=== PATIENT | female | born 1945 | race Caucasian/White ===

== ENCOUNTER → 2019-12-25 07:19 | Outpatient (CLI) | payer MEDICARE, SELFPAY ==
--- NOTE | ~2019-12-25 | MM_ITS ---
EXAMINATION: MM screening [facility] BI w angelita HISTORY: Screening mammogram TECHNIQUE: Craniocaudal and mediolateral oblique 3-D tomosynthesis images were obtained and synthetic 2-D images were generated. CAD analysis was submitted and interpreted. COMPARISON: 11/07/2018, 10/24/2017, 10/24/2016 BREAST PARENCHYMAL COMPOSITION: There are scattered areas of fibroglandular density. FINDINGS: RIGHT BREAST: There is no evidence of suspicious mass, calcification, or architectural distortion to suggest malignancy. There has been no significant interval change. LEFT BREAST: There is possible architectural distortion of the breast best appreciated 10 cm from the nipple in the middle third of the upper breast on mediolateral oblique tomosynthesis image 26/64. IMPRESSION: 1. Possible left breast architectural distortion. 2. Additional mammographic views and possible breast ultrasound are recommended. BI-RADS Category 0: Incomplete: Needs additional imaging evaluation. Reviewed, dictated and finalized at location A. ER CONTROL OPERATOR IMPRESSION: 1. Possible left breast architectural distortion. 2. Additional mammographic views and possible breast ultrasound are recommended . BI-RADS Category 0: Incomplete: Needs additional imaging evaluation.
== END ==
PROVIDERS: Visit Provider Family Medicine
DX: Z12.31 Encounter for screening mammogram for malignant neoplasm of breast (principal); R92.8 Other abnormal and inconclusive findings on diagnostic imaging of breast
CPT/HCPCS: 77063; 77067

== ENCOUNTER → 2020-01-09 07:53 | Outpatient (CLI) | payer MEDICARE, SELFPAY ==
--- NOTE | ~2020-01-09 | MMUS_ITS ---
EXAMINATION: MM diagnostic mammo unilat LT, US breast LT limited HISTORY: Possible left breast architectural distortion reported on 12/25/2019 bilateral digital screen ing mammogram TECHNIQUE: Additional 3-D tomosynthesis images of the left breast were performed and synthetic 2-D im ages were generated. CAD analysis was submitted and interpreted. High resolution upper outer quadrant left breast ultrasound was performed. COMPARISON: 12/25/2019, 11/07/2018, 10/24/2017 bilateral digital screening mammogram examinations FINDINGS: MAMMOGRAPHIC FINDINGS: Stable mild fibroglandular asymmetry. No suspicious mass or architectural distortion is evident on these supplemental views. No significant new or developing density. ULTRASOUND: No suspicious mass, vascularity or shadowing is detected. IMPRESSION: 1. No mammographic evidence of malignancy 2. Routine annual mammographic screening is recommended. BI-RADS Category 2: Benign finding(s). Reviewed, dictated and finalized at location A. IMS ADVOCATE CLERK/SPECIALIST IMPRESSION: 1. No mammographic evidence of malignancy 2. Routine annual mammographic screening is recommended. BI-RADS Category 2: Benign finding(s).
== END ==
PROVIDERS: Visit Provider Family Medicine
DX: R92.8 Other abnormal and inconclusive findings on diagnostic imaging of breast (principal)
CPT/HCPCS: 76642; 77065

== ENCOUNTER 2020-02-04 17:20 | Emergency (ER) | payer MEDICARE, SELFPAY ==
[2020-02-04 17:24] VITALS: BP 174/86; PULSE 84; RESP 16; TEMP 36.5; O2SAT 99
--- NOTE | 2020-02-04 17:31 | ED.WOUNDLAC ---
HPI - Wound/Laceration General Chief Complaint: Skin/Abscess/Foreign Body Stated Complaint: L HAND LAC Source: patient and RN notes reviewed Mode of arrival: ambulatory Limitations: no limitations History of Present Illness HPI narrative: This is a 74 years old female presented office for evaluation of left hand laceration prior to arrival. Stated she was finished painting and step back to look at her painting and accidentally tripped over her curb side and landed on her left hand and right knee. No treatment prior to arrival. She is not on any anticoagulation medication.TD is unknown. She is very anxious, stated I am allergic to needle . Related Data Home Medications Medication Instructions Recorded Confirmed losartan 50 mg PO DAILY 02/04/20 02/04/20 Allergies Allergy/AdvReac Type Severity Reaction Status Date / Time No Known Allergies Allergy Unknown Unverified 02/04/20 17:23 Review of Systems Review of Systems: Narrative: CONSTITUTIONAL: Reports feeling anxious about stitches CARDIOVASCULAR: Denies chest pain RESPIRATORY: Denies difficulty breathing GASTROINTESTINAL: Denies nausea SKIN: Reports left palm laceration, right knee abrasion MUSCULOSKELETAL: Reports right knee sore; but not concerning NEUROLOGIC: Denies head injury/feeling dizziness prior to accident PMFSH Past Medical History Medical History COPD (chronic obstructive pulmonary disease) Cough due to JOSTIN inhibitor Essential (primary) hypertension Major depressive disorder, recurrent, moderate Nicotine dependence, unspecified, uncomplicated Other age-related incipient cataract, left eye Other and unspecified hyperlipidemia Postmenopausal Spondylosis of lumbar region without myelopathy or radiculopathy Tremor Vitamin D deficiency Family History Family History Mother Hypertension Family history of elevated blood lipids Sibling Hypertension Family history of elevated blood lipids Cerebrovascular accident Family history of diabetes mellitus in first degree relative Father Hypertension Cerebrovascular accident, Onset Age: 80 Patient's father is Other Diabetes mellitus Family history of arthritis Social History Social History Smoking status: Current every day smoker Alcohol intake: current Comments At time of signature, I agree with nursing past medical, surgical, social and family history. There is no relevant family history pertinent to the presenting complaint. Exam Narrative: Exam Narrative: GENERAL: This is a well-nourished, well-developed patient, in no apparent distress. NEURO: awake, alert, and oriented to person, place and time. There were no obvious focal neurologic abnormalities. Steady gait EXTREMITIES: Right knee cap noted skin abrasion with slight tenderness to palpation. Left fingers with FROM, brisk with good cap refills;radial pulse intact. Left mid palm noted U shape laceration, gapping with active bleeding; but controlled with pressure Kiel Coma Scale Eye Opening: Spontaneous 4 Kiel Coma Scale Motor: Obeys Commands 6 Rachelle Coma Scale Verbal: Oriented 5 Course Vital Signs Vital signs: Vital Signs Temperature 97.7 F 02/04/20 17:24 Pulse Rate 84 02/04/20 17:24 Respiratory Rate 16 02/04/20 17:24 Blood Pressure 174/86 H 02/04/20 17:24 Pulse Oximetry 99 02/04/20 17:24 Temperature 97.7 F 02/04/20 17:24 Pulse Rate 84 02/04/20 17:24 Respiratory Rate 16 02/04/20 17:24 Blood Pressure 174/86 H 02/04/20 17:24 Pulse Oximetry 99 02/04/20 17:24 Procedures Laceration Laceration 1: Date: 02/04/20 Time: 17:56 Site: hand Side (If applicable): left Size (cm): 5 Description: flap and irregular Depth: simple, single layer Local A
[2020-02-04] MEDS: TETANUS,DIPHTHERIA,AC PERTUSSIS ADULT (0.5 ML) BOOSTRIX IM (18:10)
== END 2020-02-04 18:33 | disposition home or self-care (01) ==
PROVIDERS: Emergency Provider Nurse Practitioner; PCP Family Medicine
DX: S61.412A Laceration without foreign body of left hand, initial encounter (principal); W18.09XA Striking against other object with subsequent fall, initial encounter; S80.211A Abrasion, right knee, initial encounter; Z23 Encounter for immunization; F17.200 Nicotine dependence, unspecified, uncomplicated; J44.9 Chronic obstructive pulmonary disease, unspecified; I10 Essential (primary) hypertension; M47.816 Spondylosis without myelopathy or radiculopathy, lumbar region; E55.9 Vitamin D deficiency, unspecified
CPT/HCPCS: 12002; 90471; 90715; 99212; G0463

== ENCOUNTER 2020-02-13 13:34 | Emergency (ER) | payer MEDICARE, SELFPAY ==
[2020-02-13 13:42] VITALS: BP 167/92; PULSE 67; RESP 19; TEMP 36.4; O2SAT 100
--- NOTE | 2020-02-13 13:43 | ED.WOUNDLAC ---
HPI - Wound/Laceration General Chief Complaint: Wound/Laceration Stated Complaint: remove stitches Time Seen by Provider: 02/13/20 13:55 Source: patient Mode of arrival: ambulatory Limitations: no limitations History of Present Illness HPI narrative: Jerrica Vo is a 74 yo female with a hx of HTN who has sutures placed in palm of L hand on 02/03 is here for suture removal Related Data Home Medications Medication Instructions Recorded Confirmed losartan 50 mg PO DAILY 02/04/20 02/13/20 Allergies Allergy/AdvReac Type Severity Reaction Status Date / Time No Known Allergies Allergy Unknown Unverified 02/04/20 17:23 Review of Systems Review of Systems: Narrative: General/Constitutional: Denies: weight loss,fever Eyes: Denies: Redness,discharge Ears/Nose/Throat: Denies: Epistaxis,ear discharge Respiratory: Denies: Hemoptysis Gastrointestinal: Denies: Vomiting, Bleeding-rectal Skin:stures in L hand Neurologic: Denies: Focal Weakness,Sz Hematologic: Denies: Petechiae/Purpura Psychiatric: Denies: Suicidal ideation All Other Systems: Reviewed and Negative PMFSH Past Medical History Medical History COPD (chronic obstructive pulmonary disease) Cough due to JOSTIN inhibitor Essential (primary) hypertension Major depressive disorder, recurrent, moderate Nicotine dependence, unspecified, uncomplicated Other age-related incipient cataract, left eye Other and unspecified hyperlipidemia Postmenopausal Spondylosis of lumbar region without myelopathy or radiculopathy Tremor Vitamin D deficiency Family History Family History Mother Hypertension Family history of elevated blood lipids Sibling Hypertension Family history of elevated blood lipids Cerebrovascular accident Family history of diabetes mellitus in first degree relative Father Hypertension Cerebrovascular accident, Onset Age: 80 Patient's father is Other Diabetes mellitus Family history of arthritis Social History Social History Smoking status: Current every day smoker Alcohol intake: current Comments At time of signature, I agree with nursing past medical, surgical, social and family history. There is no relevant family history pertinent to the presenting complaint. Exam Narrative: Exam Narrative: GENERAL: This is a well-nourished, well-developed patient, in mild distress. afebrile, anvious HEAD: normocephalic, atraumatic. EYES: PERRL. Sclera clear/white. Vision is grossly intact. EARS: External ears normal, auditory canals clear and without drainage, TMs normal without perforation. Hearing grossly intact. NOSE: External nose normal with nasal discharge, nares without redness, THROAT: Mucous membranes moist, posterior pharynx mild erythema NECK: Neck supple, non-tender CARDIOVASCULAR: Regular rate and rhythm without murmurs, gallops, or rubs. RESPIRATORY: Clear to auscultation. Breath sounds equal bilaterally. No wheezes, rales, or rhonchi. GASTROINTESTINAL: Abdomen soft, non-tender, SKIN: warm, intact with no suspicious lesions or rash, good texture and turgor.well approximated. healing sture line in heel L hand, nild erythema, NEURO: awake, alert, and oriented to person, place and time. There were no obvious focal neurologic abnormalities. Steady gait EXTREMITIES: Normal range of motion. BACK: Nontender without deformity Course Vital Signs Vital signs: Vital Signs Temperature 97.5 F L 02/13/20 13:42 Pulse Rate 67 02/13/20 13:42 Respiratory Rate 19 02/13/20 13:42 Blood Pressure 167/92 H 02/13/20 13:42 Pulse Oximetry 100 02/13/20 13:42 Temperature 97.5 F L 02/13/20 13:42 Pulse Rate 67 02/13/20 13:42 Respiratory Rate 19 02/13/20 13:42 Blood Pressure 167/92 H 02/13/20 13:42 Pulse Oximetry 100 02/13/20 13:42 Procedures
== END 2020-02-13 14:11 | disposition home or self-care (01) ==
PROVIDERS: Emergency Provider Nurse Practitioner; PCP Family Medicine
DX: S61.412D Laceration without foreign body of left hand, subsequent encounter (principal); X58.XXXD Exposure to other specified factors, subsequent encounter; F17.200 Nicotine dependence, unspecified, uncomplicated; J44.9 Chronic obstructive pulmonary disease, unspecified; I10 Essential (primary) hypertension; M47.816 Spondylosis without myelopathy or radiculopathy, lumbar region; E55.9 Vitamin D deficiency, unspecified; E78.5 Hyperlipidemia, unspecified
CPT/HCPCS: 99211; G0463

== ENCOUNTER → 2020-12-27 10:15 | Outpatient (CLI) | payer MEDICARE, SELFPAY ==
--- NOTE | ~2020-12-27 | MM_ITS ---
EXAMINATION: MM screening [facility] BI w angelita HISTORY: Screening mammogram TECHNIQUE: Craniocaudal and mediolateral oblique 3-D tomosynthesis images were obtained and synthetic 2-D images were generated. CAD analysis was submitted and interpreted. COMPARISON: 01/09/2020, 12/25/2019, 11/07/2018, 10/24/2017 BREAST PARENCHYMAL COMPOSITION: There are scattered areas of fibroglandular density. FINDINGS: There is no evidence of suspicious mass, calcification, or architectural distortion to sugg est malignancy in either breast. There has been no suspicious interval change. IMPRESSION: 1. No mammographic evidence of malignancy. 2. Recommend routine screening mammography in one year. BI-RADS Category 1: Negative Reviewed, dictated and finalized at location A. N RESOURCES DIRECTOR
== END ==
PROVIDERS: PCP Family Medicine; Visit Provider Family Medicine
DX: Z12.31 Encounter for screening mammogram for malignant neoplasm of breast (principal)
CPT/HCPCS: 77063; 77067

== ENCOUNTER → 2021-05-02 12:18 | Outpatient (CLI) | payer MEDICARE, SELFPAY ==
--- NOTE | ~2021-05-02 | DEXA_ITS ---
Bone Density Report Name: Jerrica Vo Age: 76 Sex: Female Ethnicity: White Date of : 1945 Indication: postmenopausal; screening for osteoporosis; parental hip fracture; Referring Provider: TAWANNA QUINTERO Study: Bone densitometry was performed. Exam Date: May 02, 2021 Accession number: [id number] Bone Density: Region BMD T-score Z-score Classification AP Spine (L1, L2, L4) 1.154 1.1 3.5 Normal Femoral Neck (Left) 0.718 -1.2 1.0 Osteopenia Total Hip (Left) 0.891 -0.4 1.4 Normal Femoral Neck (Right) 0.744 -0.9 1.2 Normal Total Hip (Right) 0.856 -0.7 1.1 Normal Total Hip Mean 0.874 -0.6 1.3 Normal World Health Organization criteria for BMD impression classify patients as: Normal (T-score at or above -1.0), Osteopenia (T-score between -1.0 and -2.5), or Osteoporosis (T-score at or below -2.5). 10-year Fracture Risk(1): Major Osteoporotic Fracture 21% Hip Fracture 13% Reported Risk Factors: [place] (), Neck BMD=0.718, BMI=25.9, parental fracture, smoking (1) FRAX(R) Version 3.08. Fracture probability calculated for an untreated patient. Fracture probability may be lower if the patient has received treatment. Previous Exams: Region Exam Age BMD T-score BMD Change BMD Change Date g/cm2 vs Baseline vs Previous AP Spine(L1, L2, L4) 05/02/2021 76 1.154 1.1 0.026* 0.028* 10/24/2017 72 1.125 0.8 -0.002 0.005 10/04/2015 70 1.120 0.8 -0.008 0.016 10/26/2010 65 1.104 0.6 -0.023* -0.023* 07/03/2007 62 1.127 0.8 Total Hip(Left) 05/02/2021 76 0.891 -0.4 0.005 -0.025 10/24/2017 72 0.915 -0.2 0.030* 0.022 10/04/2015 70 0.894 -0.4 0.008 0.021 10/26/2010 65 0.872 -0.6 -0.013 -0.013 07/03/2007 62 0.886 -0.5 Total Hip(Right) 05/02/2021 76 0.856 -0.7 -0.046* 0.013 10/24/2017 72 0.843 -0.8 -0.059* -0.004 10/04/2015 70 0.847 -0.8 -0.055* -0.021 10/26/2010 65 0.868 -0.6 -0.034* -0.034* 07/03/2007 62 0.902 -0.3 *Denotes significance at 95% confidence level, LSC for AP Spine = 0.022 g/cm2, LSC for Total Hip = 0.027 g/cm2 Clinical Information Provided by Patient: Parent has had a hip fracture Smokes Has used the following medications: Vitamin D, Calcium Patient maximum height was 67.0 Menopause Age: 5
== END ==
PROVIDERS: PCP Family Medicine; Visit Provider Family Medicine
DX: Z78.0 Asymptomatic menopausal state (principal); M85.852 Other specified disorders of bone density and structure, left thigh
CPT/HCPCS: 77080

== ENCOUNTER 2021-10-17 10:14 | Outpatient (CLI) | payer MEDICARE, SELFPAY ==
--- NOTE | ~2021-10-17 | CT_ITS ---
EXAMINATION: CT lung screening DATE: 10/17/2021 11:06 INDICATION: History of tobacco dependence. TECHNIQUE: Computed tomography (CT) of the chest was performed without intravenous contrast. The dose -length product was 88.94 mGy-cm. Automated exposure control and iterative reconstruction technique w ere employed. COMPARISON: Chest x-ray dated 04/11/2016 FINDINGS: Heart size is normal. No significant pleural or pericardial effusion. There is mild atheros clerosis of the aorta and coronary arteries. Calcified granuloma left upper lobe. The upper abdomen i s unremarkable. Mild thoracic spondylosis. No focal lytic or blastic lesion. There is a 2-3 mm right apical nodule. There is a 3 mm left lower lobe nodule. There is a 2 mm lingular nodule. No endobronch ial lesions. No focal airspace disease. No pneumothorax. IMPRESSION: 1. Lung-RADS category 2: Benign appearance or behavior. Continue annual screening with noncontrast lo w-dose chest CT in 12 months. Reviewed, dictated and finalized at location A. NSIONAL INTEGRATION ENGINEER IMPRESSION: 1. Lung-RADS category 2: Benign appearance or behavior. Continue annual screeni ng with noncontrast low-dose chest CT in 12 months.
== END 2021-10-17 10:15 | disposition home or self-care (01) ==
PROVIDERS: PCP Family Medicine; Visit Provider Family Medicine
DX: Z12.2 Encounter for screening for malignant neoplasm of respiratory organs (principal); Z87.891 Personal history of nicotine dependence
CPT/HCPCS: 71271

== ENCOUNTER → 2022-01-26 12:16 | Outpatient (CLI) | payer MEDICARE, SELFPAY ==
--- NOTE | ~2022-01-26 | MM_ITS ---
EXAMINATION: MM screening [facility] BI w angelita HISTORY: Screening mammogram TECHNIQUE: Craniocaudal and mediolateral oblique 3-D tomosynthesis images were obtained and synthetic 2-D images were generated. CAD analysis was submitted and interpreted. COMPARISON: December 27, 2020 bilateral screening mammogram January 09, 2020 diagnostic left mammogram and limited left breast ultrasound December 25, 2019, November 07, 2018, October 24, 2017 bilateral screening mammogram examinations BREAST PARENCHYMAL COMPOSITION: There are scattered areas of fibroglandular density. FINDINGS: There is no evidence of suspicious mass, calcification, or architectural distortion to sugg est malignancy in either breast. There has been no suspicious interval change. IMPRESSION: 1. No mammographic evidence of malignancy. 2. Recommend routine screening mammography in one year. BI-RADS Category 1: Negative Reviewed, dictated and finalized at location A.
== END ==
PROVIDERS: PCP Family Medicine; Visit Provider Family Medicine
DX: Z12.31 Encounter for screening mammogram for malignant neoplasm of breast (principal)
CPT/HCPCS: 77063; 77067

== ENCOUNTER 2022-08-10 08:11 | Emergency (ER) | payer MEDICARE, SELFPAY ==
--- NOTE | 2022-08-10 08:22 | ED.SKABFB ---
HPI - Skin/Abscess/Foreign Bdy General Chief complaint: Skin/Abscess/Foreign Body Stated complaint: bump on upper lt arm Time Seen by Provider: 08/10/22 08:25 Source: patient Mode of arrival: ambulatory Limitations: no limitations History of Present Illness HPI narrative: 77 y/o female presented for c/o 'bump' to left upper arm for about 2 days. Center is with with surrounding redness. Denies pain, drainage, itching to the site. Denies change in size or any other locations. No change to lotion, soap, detergent etc. Endorses covid vaccination 07/20, flu vac 07/12, stating one of these vaccines was on the left arm. She has not applied anything to the site. Related Data Home Medications Medication Instructions Recorded Confirmed calcium carbonate 600 mg calcium 600 mg PO DAILY 12/02/21 08/10/22 (1,500 mg) tablet (Calcium) Allergies Allergy/AdvReac Type Severity Reaction Status Date / Time No Known Allergies Allergy Unknown Verified 08/10/22 08:18 Review of Systems Review of Systems: CONSTITUTIONAL: Denies body aches, fever, chills, or sweats. EYES: Denies visual changes, redness, or discharge. ENT: Denies rhinorrhea, congestion CARDIOVASCULAR: Denies chest pain, palpitations, or edema. RESPIRATORY: Denies cough or dyspnea. GASTROINTESTINAL: Denies abdominal pain, nausea, vomiting, or diarrhea. SKIN: left arm 'bump' MUSCULOSKELETAL: Denies back pain, joint pain, or myalgia. NEUROLOGIC: Denies headache, numbness, tingling, or weakness. [facility] Past Medical History Medical History COPD (chronic obstructive pulmonary disease) Cough due to JOSTIN inhibitor Essential (primary) hypertension Macular degeneration Major depressive disorder, recurrent, moderate Nicotine dependence, unspecified, uncomplicated Other age-related incipient cataract, left eye Other and unspecified hyperlipidemia Postmenopausal Spondylosis of lumbar region without myelopathy or radiculopathy Tremor Vitamin D deficiency Surgical History Surgical History H/O oophorectomy History of total knee arthroplasty Hx of cataract surgery Family History Family History Mother Hypertension Family history of elevated blood lipids Sibling Hypertension Family history of elevated blood lipids Cerebrovascular accident Family history of diabetes mellitus in first degree relative Father Hypertension Cerebrovascular accident, Onset Age: 80 Patient's father is Other Diabetes mellitus Family history of arthritis Social History Social History Social History: Smoking packs per day: 0.5 Smoking cigarettes per day: 10.0 Years smoked: 60 Smoking pack-years: 30.00 Smoking status: Current every day smoker Tobacco type: cigarettes Second hand tobacco smoke exposure: Yes Alcohol intake: never Substance use: never Substance use type: does not use Gender identity (if verbalized by the patient): Female Sexual Orientation (if Verbalized by the Patient): Straight or Heterosexual Comments At time of signature, I have reviewed and agree with nursing past medical, surgical, social and family history unless otherwise noted. Please see nursing chart for further information. There is no relevant family history pertinent to the presenting complaint Exam Narrative: GENERAL: Well-appearing EYES: conjunctivae clear, and EOMI. ENT: Mucous membranes moist. Oropharynx without edema, erythema or lesions. CHEST: Clear to auscultation. HEART: Regular rate and rhythm. SKIN: Warm, dry. Left distal aspect of deltoid with approx 0.5cm diameter erythema with approx 3mm white fluctuant comedone at center. Firm under skin, nontender, no induration. NEURO: Alert and oriented x3. Cours
[2022-08-10 08:23] VITALS: BP 156/86; PULSE 82; RESP 16; TEMP 36.9; O2SAT 99
== END 2022-08-10 08:40 | disposition home or self-care (01) ==
PROVIDERS: Emergency Provider Nurse Practitioner Family; PCP Family Medicine
DX: L70.0 Acne vulgaris (principal); F17.210 Nicotine dependence, cigarettes, uncomplicated; J44.9 Chronic obstructive pulmonary disease, unspecified; I10 Essential (primary) hypertension; H35.30 Unspecified macular degeneration; M47.816 Spondylosis without myelopathy or radiculopathy, lumbar region; E78.5 Hyperlipidemia, unspecified; Z96.659 Presence of unspecified artificial knee joint
CPT/HCPCS: 10160; 99213; G0463

== ENCOUNTER 2022-12-20 09:49 | Outpatient (CLI) | payer MEDICARE, SELFPAY ==
--- NOTE | ~2022-12-20 | CT_ITS ---
EXAMINATION: CT lung screening DATE: 12/20/2022 10:13 INDICATION: Smoker. Personal history of tobacco dependence. TECHNIQUE: Computed tomography (CT) of the chest was performed without intravenous contrast. The dose -length product was 90.31 mGy-cm. Automated exposure control and iterative reconstruction technique w ere employed. COMPARISON: CT dated 10/17/2021 FINDINGS: There is a calcified granuloma left upper lobe. No thoracic lymphadenopathy. There is ather osclerosis of the aorta and coronary arteries. No significant pleural or pericardial effusion. There is mild emphysema. Stable 2-3 mm right apical nodule. No endobronchial lesions. No emphysema. Stable 2 mm left lower lobe nodule. Stable 2 mm lingular nodule. No new pulmonary nodules or masses. Mild th oracic spondylosis. IMPRESSION: 1. Lung-RADS category 2: Benign appearance or behavior. Continue annual screening with noncontrast lo w-dose chest CT in 12 months. Reviewed, dictated and finalized at location A. STIAN COUNSELOR IMPRESSION: 1. Lung-RADS category 2: Benign appearance or behavior. Continue annual screeni ng with noncontrast low-dose chest CT in 12 months.
== END 2022-12-20 09:50 | disposition home or self-care (01) ==
PROVIDERS: PCP Family Medicine; Visit Provider Family Medicine
DX: Z12.2 Encounter for screening for malignant neoplasm of respiratory organs (principal); F17.210 Nicotine dependence, cigarettes, uncomplicated
CPT/HCPCS: 71271

== ENCOUNTER → 2023-03-28 10:42 | Outpatient (CLI) | payer MEDICARE, SELFPAY ==
--- NOTE | ~2023-03-28 | MM_ITS ---
EXAMINATION: MM screening [facility] BI w angelita HISTORY: Screening mammogram TECHNIQUE: Craniocaudal and mediolateral oblique 3-D tomosynthesis images were obtained and synthetic 2-D images were generated. CAD analysis was submitted and interpreted. COMPARISON: 01/26/2022, 12/27/2020, 01/09/2020, 12/25/2019 BREAST PARENCHYMAL COMPOSITION: There are scattered areas of fibroglandular density. FINDINGS: No suspicious mass, calcification, or architectural distortion are identified in either chepe ast to suggest malignancy. There has been no suspicious interval change. IMPRESSION: 1. No mammographic evidence of malignancy. 2. Recommend routine screening mammography in one year. BI-RADS Category 1: Negative Reviewed, dictated and finalized at location A.
--- NOTE | ~2023-03-28 | DEXA_ITS ---
Bone Density Report Name: JOHN RASMUSSEN Age: 78 Sex: Female Ethnicity: White Date of : 1945 Indication: postmenopausal; screening for osteoporosis; parental hip fracture; Referring Provider: VIVIAN SILVA Study: Bone densitometry was performed. Exam Date: March 28, 2023 Accession number: [id number] Bone Density: Region BMD T-score Z-score Classification AP Spine (L1-L4) 1.276 2.1 4.7 Normal Femoral Neck (Left) 0.752 -0.9 1.3 Normal Total Hip (Left) 0.914 -0.2 1.7 Normal Femoral Neck (Right) 0.769 -0.7 1.5 Normal Total Hip (Right) 0.896 -0.4 1.6 Normal Total Hip Mean 0.905 -0.3 1.7 Normal World Health Organization criteria for BMD impression classify patients as: Normal (T-score at or above -1.0), Osteopenia (T-score between -1.0 and -2.5), or Osteoporosis (T-score at or below -2.5). 10-year Fracture Risk: FRAX not reported because: All T-scores for Spine Total, Hip Total, Femoral Neck at or above -1.0 Previous Exams: Region Exam Age BMD T-score BMD Change BMD Change Date g/cm2 vs Baseline vs Previous AP Spine(L1-L4) 03/28/2023 78 1.276 2.1 0.127* 0.106* 10/24/2017 72 1.170 1.1 0.022 0.004 10/04/2015 70 1.166 1.1 0.018 0.037* 10/26/2010 65 1.129 0.7 -0.019 -0.019 07/03/2007 62 1.149 0.9 Total Hip(Left) 03/28/2023 78 0.914 -0.2 0.029* 0.024 05/02/2021 76 0.891 -0.4 0.005 -0.025 10/24/2017 72 0.915 -0.2 0.030* 0.022 10/04/2015 70 0.894 -0.4 0.008 0.021 10/26/2010 65 0.872 -0.6 -0.013 -0.013 07/03/2007 62 0.886 -0.5 Total Hip(Right) 03/28/2023 78 0.896 -0.4 -0.005 0.040* 05/02/2021 76 0.856 -0.7 -0.046* 0.013 10/24/2017 72 0.843 -0.8 -0.059* -0.004 10/04/2015 70 0.847 -0.8 -0.055* -0.021 10/26/2010 65 0.868 -0.6 -0.034* -0.034* 07/03/2007 62 0.902 -0.3 *Denotes significance at 95% confidence level, LSC for AP Spine = 0.022 g/cm2, LSC for Total Hip = 0.027 g/cm2 Clinical Information Provided by Patient: Parent has had a hip fracture Smokes Has used the following medications: Fosamax (i.e. alendronate), Vitamin D, Calcium Patient maximum height was 67.0 Menopause Age: 55 No regular weight bearing exercise Does not regularly consume dairy products Drinks c
== END ==
PROVIDERS: PCP Family Medicine; Visit Provider Nurse Practitioner Gerontology
DX: Z12.31 Encounter for screening mammogram for malignant neoplasm of breast (principal); Z78.0 Asymptomatic menopausal state
CPT/HCPCS: 77063; 77067; 77080

== ENCOUNTER 2023-07-04 06:40 | Outpatient (CLI) | payer MEDICARE, SELFPAY ==
[2023-07-04 08:24] LABS: Alanine Aminotransferase 14 U/L (6-35); Albumin Level 4.2 g/dL (3.5-5.1); Alkaline Phosphatase 80 U/L (38-126); Anion Gap 9 mmol/L (8-16); Aspartate Amino Transferase 22 U/L (14-36); Bilirubin,Total 0.6 mg/dL (0.2-1.3); Blood Urea Nitrogen 20 mg/dL (7-17); Calcium 9.3 mg/dL (8.4-10.2); Carbon Dioxide 25 mmol/L (22-30); Chloride 107 mmol/L (98-107); Cholesterol 174 mg/dL (0-200); Estimated Glomerular Filt Rate 48; Glucose 105 mg/dL (65-110); HDL Direct 61 mg/dL; Potassium 4.3 mmol/L (3.4-5.0); Sodium 141 mmol/L (137-145); Triglycerides 47 mg/dL (<150)
[2023-07-04 08:34] LABS: LDL Cholesterol Direct 85 mg/dL
== END 2023-07-04 06:41 | disposition home or self-care (01) ==
PROVIDERS: PCP Family Medicine; Visit Provider Internal Medicine Cardiovascular Disease
DX: E78.5 Hyperlipidemia, unspecified (principal); E55.9 Vitamin D deficiency, unspecified
CPT/HCPCS: 36415; 80053; 80061

== ENCOUNTER 2024-04-26 07:37 | Outpatient (CLI) | payer MEDICARE, SELFPAY ==
--- NOTE | ~2024-04-26 | MM_ITS ---
EXAMINATION: MM screening [facility] BI w angelita HISTORY: Screening mammogram TECHNIQUE: Craniocaudal and mediolateral oblique 3-D tomosynthesis images were obtained and synthetic 2-D images were generated. CAD analysis was submitted and interpreted. COMPARISON: 03/28/2023, 01/26/2022, 12/27/2020 BREAST PARENCHYMAL COMPOSITION:Not Dense. There are scattered areas of fibroglandular density. FINDINGS: No suspicious mass, calcification, or architectural distortion are identified in either chepe ast to suggest malignancy. There has been no suspicious interval change. IMPRESSION: No mammographic evidence of malignancy. Recommend routine screening mammography in one year. BI-RADS Category 1: Negative Reviewed, dictated and finalized at location .
== END 2024-04-26 07:38 ==
LOC: MICIMG 07:38
PROVIDERS: PCP Family Medicine; Visit Provider Family Medicine
DX: Z12.31 Encounter for screening mammogram for malignant neoplasm of breast (principal)
CPT/HCPCS: 77063; 77067

== ENCOUNTER 2024-05-29 08:22 | Outpatient (CLI) | payer MEDICARE, SELFPAY ==
[2024-05-29 08:56] LABS: Basophils Absolute Auto 0.1 K/mm3 (0.0-0.1); Basophils Percent Auto 1.1 % (0.2-1.2); Eosinophils Absolute Auto 0.2 K/mm3 (0-0.3); Eosinophils Percent Auto 3.5 % (0-4.4); Hematocrit 42.5 % (37.0-47.0); Hemoglobin 13.3 g/dL (12.0-15.0); Immature Granulocyte Absolute 0.01 K/mm3 (0.00-0.031); Immature Granulocyte Percent A 0.2 % (0-0.5); Lymphocytes Absolute Auto 1.79 K/mm3 (0.9-3.2); Lymphocytes Percent Auto 28.5 % (18.3-44.2); Mean Corpuscular HGB Conc 31.3 g/dl (32-36); Mean Corpuscular Volume 99.1 fl (80-100); Mean Platelet Volume 11.7 fl (7.4-10.4); Monocytes Absolute Auto 0.6 K/mm3 (0.1-0.6); Monocytes Percent Auto 9.7 % (2.6-8.5); Neutrophils Absolute Auto 3.6 K/mm3 (1.3-6.7); Platelet Count Result 200 k/mm3 (150-375); Red Blood Count 4.29 M/mm3 (4.2-5.4); Red Cell Distribution Width 13.3 % (11.5-14.5); White Blood Count 6.3 K/mm3 (4.5-10.0)
[2024-05-29 09:16] LABS: Alanine Aminotransferase 10 U/L (6-35); Albumin Level 4.3 g/dL (3.5-5.1); Alkaline Phosphatase 76 U/L (38-126); Anion Gap 9 mmol/L (4-12); Aspartate Amino Transferase 19 U/L (14-36); Bilirubin,Total 0.5 mg/dL (0.2-1.3); Blood Urea Nitrogen 14 mg/dL (7-17); Calcium 9.7 mg/dL (8.4-10.2); Carbon Dioxide 28 mmol/L (22-30); Chloride 104 mmol/L (98-107); Cholesterol 204 mg/dL (0-200); Estimated Glomerular Filt Rate 53; Glucose 94 mg/dL (65-110); HDL Direct 70 mg/dL; Potassium 4.2 mmol/L (3.4-5.0); Sodium 141 mmol/L (137-145); Triglycerides 59 mg/dL (<150)
[2024-05-29 09:27] LABS: LDL Cholesterol Direct 113 mg/dL
== END 2024-05-29 08:23 | disposition home or self-care (01) ==
LOC: ANHLAB 08:25
PROVIDERS: PCP Family Medicine; Visit Provider Family Medicine
DX: E78.2 Mixed hyperlipidemia (principal); I10 Essential (primary) hypertension
CPT/HCPCS: 36415; 80053; 80061; 85025